=== PATIENT | male | born 1965 | race African-American/Black ===

== ENCOUNTER 2018-12-29 18:42 | Emergency (ER) | payer MEDICAID ==
[~2018-12-29] VITALS: Ht 182.9 cm; Wt 150.0 kg
[2018-12-29] MEDS ORDERED: KETOROLAC 30MG/ML VIAL IV STA (19:33)
[2018-12-29] MEDS ORDERED: ONDANSETRON HCL 4MG/2ML INJ IV STA (19:33)
[2018-12-29] MEDS ORDERED: SODIUM CHLORIDE 0.9% 1,000 ML IV ONE (19:33)
[2018-12-29 19:55] LABS: HEMATOCRIT. 44.8 % (42.0-52.0); HEMOGLOBIN. 15.2 g/dL (14.0-18.0); MEAN CORPUSCULAR HEMOGLOBIN 32.8 pg (28.0-32.0); MEAN CORPUSCULAR VOLUME 96.4 fL (80.0-94.0); MEAN PLATELET VOLUME 8.3 fl (7.4-10.4); PLATELET 232 x1000/uL (130-400); RED BLOOD CELL COUNT 4.65 mill/uL (4.7-6.1); RED CELL DISTRIBUTION WIDTH 13.7 % (11.6-14.6)
[2018-12-29 19:58] LABS: CHLORIDE 104 mEq/L (98-107)
[2018-12-29 20:01] LABS: PROTHROMBIN TIME 10.3 sec (9.6-11.0)
[2018-12-29 20:09] LABS: PLATELET ESTIMATE NORMAL
[2018-12-29 20:29] LABS: CLARITY URINE CLEAR (CLEAR); COLOR URINE DARK YELLOW (YELLOW); KETONES URINE NEGATIVE (NEGATIVE); LEUKOCYTE ESTERASE URINE NEGATIVE (NEGATIVE); NITRITE URINE NEGATIVE (NEGATIVE); OCCULT BLOOD URINE NEGATIVE (NEGATIVE); PROTEIN URINE NEGATIVE (NEGATIVE); SPECIFIC GRAVITY URINE 1.024 (1.005-1.030)
[2018-12-29] MEDS ORDERED: MORPHINE SULFATE 4 MG/ML CPJ (NOT FOR IM USE) IV ONE (21:30)
[2018-12-29 23:10] VITALS: BP 178/91
== END 2018-12-29 23:38 | disposition home or self-care (01) ==
LOC: ER 18:42
DX: R10.13 Epigastric pain (principal); R10.12 Left upper quadrant pain; I10 Essential (primary) hypertension; Z98.84 Bariatric surgery status; Z91.018 Allergy to other foods
CPT/HCPCS: 36415; 74176; 76705; 80053; 81003; 83690; 84484; 85025; 85610; 96361; 96374; 96375; 99284; J1885; J2270; J2405; J7030